=== PATIENT | female | born 1970 | race Caucasian/White ===

== ENCOUNTER 2024-08-18 09:17 | Observation (INO) ==
[2024-08-18] MEDS ORDERED: MORPHINE SULFATE INJ 2 MG INJ IVP PRN (10:01)
[2024-08-18] MEDS: NS 1,000 ML IV 1,000 ML IV SCH (10:15)
[2024-08-18] MEDS: FLAGYL IV PREMIX 500 MG BAG 500 MG/100 ML BAG IV SCH (10:15)
[2024-08-18] MEDS: CIPRO IV 400 MG PREMIX* 400 MG/200 ML IV.SOLN. IV SCH (10:15)
[2024-08-18 10:20] LABS: BASOPHILS % (AUTO) 0.5 % (0.2-1.0); EOSINOPHILS # (AUTO) 0.1 x10^3/uL (0.0-0.2); EOSINOPHILS % (AUTO) 2.2 % (0.9-2.9); ERYTHROCYTE SEDIMENTATION RATE 6 MM/HOUR (0-20); HEMATOCRIT 39.9 % (36.0-47.0); HEMOGLOBIN 13.9 g/dL (12.0-16.0); LYMPHOCYTES # (AUTO) 0.7 X10^3/uL (1.3-2.9); LYMPHOCYTES % (AUTO) 12.9 % (21.0-51.0); MEAN CORPUSCULAR HEMOGLOBIN 30.4 pg (27.0-34.0); MEAN CORPUSCULAR HGB CONC 34.7 g/dL (33.0-35.0); MEAN CORPUSCULAR VOLUME 87.5 fL (80.0-100.0); MEAN PLATELET VOLUME 8.6 fL (7.4-11.0); MONOCYTES # (AUTO) 0.4 x10^3/uL (0.3-0.8); MONOCYTES % (AUTO) 6.2 % (0.0-13.0); NEUTROPHILS # (AUTO) 4.5 x10^3/uL (2.2-4.8); NEUTROPHILS % (AUTO) 78.2 % (42.0-75.0); PLATELET COUNT 196 X10^3/uL (150.0-450.0); RED BLOOD COUNT 4.56 X10^6/uL (3.5-5.4); RED CELL DISTRIBUTION WIDTH 12.5 % (11.6-16.5); WHITE BLOOD COUNT 5.8 X10^3/uL (3.6-10.0)
[2024-08-18 10:33] LABS: ALANINE AMINOTRANSFERASE 23 Units/L (12-78); ALBUMIN 3.4 g/dL (3.4-5.0); ALKALINE PHOSPHATASE 82 Units/L (46-116); AMYLASE 49 Units/L (25-115); ASPARTATE AMINO TRANSFERASE 20 Units/L (15-37); BLOOD UREA NITROGEN 10 mg/dL (7-18); CALCIUM 8.6 mg/dL (8.5-10.1); CARBON DIOXIDE 29.9 mmol/L (21-32); CHLORIDE 104 mmol/L (98-107); CREATININE 0.64 mg/dL (0.55-1.02); GLUCOSE 94 mg/dL (65-99); LIPASE 57 Units/L (16-77); POTASSIUM 3.7 mmol/L (3.5-5.1); SODIUM 139 mmol/L (136-145); TOTAL PROTEIN 6.8 g/dL (6.4-8.2); eGFR NON BLACK RACES > 60 (>60)
[2024-08-18 10:37] VITALS: BMI 20.7
[2024-08-18 12:05] LABS: BILIRUBIN,URINE NEGATIVE (NEGATIVE); BLOOD/HEMOGLOBIN,URINE NEGATIVE (NEGATIVE); GLUCOSE, URINE NEGATIVE (NEGATIVE); KETONES,URINE 1+ (NEGATIVE); LEUKOCYTE ESTERASE ,URINE NEGATIVE (NEGATIVE); NITRITES,URINE NEGATIVE (NEGATIVE); PROTEIN,URINE NEGATIVE (NEGATIVE); UROBILINOGEN,URINE NORMAL (NORMAL)
[2024-08-18 12:06] LABS: APPEARANCE,URINE CLEAR (CLEAR); COLOR,URINE YELLOW (YELLOW)
--- NOTE | 2024-08-18 12:34 | DR.H&P ---
H&P History & Physical for Day of: H&P Date: 08/18/24 Chief Complaint Chief Complaint: left abdominal pain History of Present Illness History of Present Illness: PT IS 54 WF, DIRECT ADMIT FROM DR IQBAL OFFICE WITH CO LUQ AND LLQ PAIN SINCE WEDNESDAY. PT STATES SHE HAS HX OF DIVERTICULITIS AND HAS TAKEN CIPRO AND FLAGYL SINCE WEDNESDAY AM WITHOUT IMPROVMENT. PTS HAS COLONOSCOPY WAS 2 YEARS AGO. PT CO NAUSEA, NO VOMITING AND FATIGUE. PT ADMITTED FOR TREATMENT AND EVALUATION OF ACUTE ILLNESS. Past Surgical History Surgical History: Hysterectomy Family History Family Medical History: Hypertension Social History Does patient currently use any type of tobacco product: No Type of Tobacco Use: None Does any household member use tobacco: No Alcohol Use: None Drug Use: None Medications Home Medications: Home Medications Medication Instructions Recorded Confirmed Type estradiol 1 mg tablet (Estrace) 1 mg PO QDAY 08/18/24 08/18/24 History Allergies Allergies Allergy/AdvReac Type Severity Reaction Status Date / Time levofloxacin (From Levaquin) Allergy Verified 12/26/19 16:20 Labs 08/18/24 10:12 08/18/24 10:12 Labs: Laboratory WBC 5.8 X10^3/uL (3.6-10.0) 08/18/24 10:12 RBC 4.56 X10^6/uL (3.5-5.4) 08/18/24 10:12 Hgb 13.9 g/dL (12.0-16.0) 08/18/24 10:12 Hct 39.9 % (36.0-47.0) 08/18/24 10:12 MCV 87.5 fL (80.0-100.0) 08/18/24 10:12 MCH 30.4 pg (27.0-34.0) 08/18/24 10:12 MCHC 34.7 g/dL (33.0-35.0) 08/18/24 10:12 RDW 12.5 % (11.6-16.5) 08/18/24 10:12 Plt Count 196 X10^3/uL (150.0-450.0) 08/18/24 10:12 MPV 8.6 fL (7.4-11.0) 08/18/24 10:12 Neut % (Auto) 78.2 % (42.0-75.0) H 08/18/24 10:12 Lymph % (Auto) 12.9 % (21.0-51.0) L 08/18/24 10:12 Crowley % (Auto) 6.2 % (0.0-13.0) 08/18/24 10:12 Eos % (Auto) 2.2 % (0.9-2.9) 08/18/24 10:12 Baso % (Auto) 0.5 % (0.2-1.0) 08/18/24 10:12 Neut # (Auto) 4.5 x10^3/uL (2.2-4.8) 08/18/24 10:12 Lymph # (Auto) 0.7 X10^3/uL (1.3-2.9) L 08/18/24 10:12 Crowley # (Auto) 0.4 x10^3/uL (0.3-0.8) 08/18/24 10:12 Eos # (Auto) 0.1 x10^3/uL (0.0-0.2) 08/18/24 10:12 Baso # (Auto) 0.0 X10^3/uL (0.0-0.1) 08/18/24 10:12 Absolute Nucleated RBC 0.0 /100WBC 08/18/24 10:12 ESR 6 MM/HOUR (0-20) 08/18/24 10:12 Sodium 139 mmol/L (136-145) 08/18/24 10:12 Corrected Sodium TNP 08/18/24 10:12 Potassium 3.7 mmol/L (3.5-5.1) 08/18/24 10:12 Chloride 104 mmol/L (98-107) 08/18/24 10:12 Carbon Dioxide 29.9 mmol/L (21-32) 08/18/24 10:12 BUN 10 mg/dL (7-18) 08/18/24 10:12 Creatinine 0.64 mg/dL (0.55-1.02) 08/18/24 10:12 Est GFR (MDRD) Af Amer > 60 (>60) 08/18/24 10:12 Est GFR (MDRD) Non-Af > 60 (>60) 08/18/24 10:12 Glucose 94 mg/dL (65-99) 08/18/24 10:12 Calcium 8.6 mg/dL (8.5-10.1) 08/18/24 10:12 Corrected Calcium TNP 08/18/24 10:12 Total Bilirubin 0.60 mg/dL (0.2-1.0) 08/18/24 10:12 AST 20 Units/L (15-37) 08/18/24 10:12 ALT 23 Units/L (12-78) 08/18/24 10:12 Alkaline Phosphatase 82 Units/L (46-116) 08/18/24 10:12 C-Reactive Protein 20.20 mg/L (0-3.0) H 08/18/24 10:12 Total Protein 6.8 g/dL (6.4-8.2) 08/18/24 10:12 Albumin 3.4 g/dL (3.4-5.0) 08/18/24 10:12 Globulin 3.4 g/dL (2.5-4.5) 08/18/24 10:12 Albumin/Globulin Ratio 1.0 Ratio (1.1-2.1) L 08/18/24 10:12 Amylase 49 Units/L (25-115) 08/18/24 10:12 Lipase 57 Units/L (16-77) 08/18/24 10:12 Specimen Type Clean catch urine 08/18/24 11:45 Urine Color Yellow (YELLOW) 08/18/24 11:45 Urine Appearance Clear (CLEAR) 08/18/24 11:45 Urine pH 6.0 (5.0 - 8.0) 08/18/24 11:45 Ur Specific [place] 1.010 (1.000-1.030) 08/18/24 11:45 Urine Protein Negative (NEGATIVE) 08/18/24 11:45 Urine Glucose (UA) Negative (NEGATIVE) 08/18/24 11:45 Urine Ketones 1+ (NEGATIVE) 08/18/24 11:45 Urine Blood Negative (NEGATIVE) 08/18/24 11:45 Urine Nitrite Negative (NEGATIVE) 08/18/24 11:45 Urine Bilirubin Negative (NEGATIVE) 08/18/24 11:45 Urine Urobilinogen Normal (NORMAL) 08/18/24 11:45 Ur Leukocyte Esterase Negative (NEGATIVE) 08/18/24 11:45 Review of Systems Constitutional: Weakness Eyes: No Symptoms Reported ENT: No Symptoms Reported Respiratory: No Symptoms Reported Cardiovascular: No Symptoms Reported Gastrointestinal: Nausea and Abdominal Pain Genitourinary: No Symptoms Reported Musculoskeletal: No Symptoms Reported Skin: No Symptoms Reported Neurological: No Symptoms Reported Physical Exam Vital Signs: Vital Signs Temperature 97.7 F Pulse Rate [Left Radial] 76 Respiratory Rate 21 Blood Pressure [Left Arm] 132/73 O2 Sat by Pulse Oximetry 99 Oriented: Normal Eyes: Normal Ear: Normal Nose: Normal Throat: Normal Respiratory: Clear Throughout Cardiovascular: Normal : Normal Auscultation: Bowel Sounds: Increased Tenderness: LUQ and LLQ Skin: Normal Musculoskeletal: Normal Psychiatric: Normal Mood Description: Calm Speech Pattern: Clear and Appropriate Assessment/Plan (1) Diverticulitis: Status: Acute Plan: ADMIT, IV HYDRATION PAIN CONTROL, IV CIPRO AND FLAGYL CT ABD PELVIS WITH CONTRAST CONSULT DR ALCANTARA PRLeyda AMYLASE AND LIPASE, NPO
[2024-08-18] MEDS: READI-CAT 2 ONE (13:07)
[2024-08-18] MEDS: OMNIPAQUE 350 mg/mL 100 mL BTL 100 ML ONE (13:19)
--- NOTE | 2024-08-18 15:40 | CT ---
EXAM: ABDCMEN/PELVIS WITH CON HISTORY: Severe Abd pain, hx diverticulitis; COMPARISON: CT abdomen and pelvis 09/04/2022 TECHNIQUE: Multiple CT axial images of the abdomen and pelvis were obtained with IV contrast. Coronal and sagittal images were reconstructed. Dose reduction techniques included Automated Exposure Control (AEC) and adjustment of mA and kV. FINDINGS: The bowel is not dilated. There is no wall thickening in the bowel or edema around the bowel. There are diverticula in the colon. But there is no wall thickening or pericolonic edema to suggest acute diverticulitis. A normal appendix is not identified. But there is no inflammation around the cecum or at the expected location of the appendix. The lung bases are clear. Heart size is normal. The liver is normal in size and configuration. The gallbladder has no edema around it. The spleen is normal in size and shape. The adrenal glands are normal. The pancreas is normal. Renal enhancement is uniform and symmetric with no solid mass. There is no hydronephrosis or significant perirenal edema. The bladder is contracted. It has no wall thickening or perivesical edema. Degenerative disc disease is present at the lumbosacral junction. IMPRESSION: 1. No acute findings 2. Colonic diverticula THIS IS AN ELECTRONICALLY VERIFIED FINAL REPORT 08/18/2024 3:37 PM - Electronically signed by Larry Richardson MD
[2024-08-18] MEDS: ZOFRAN INJ 4 MG VIAL ONE (17:00)
[2024-08-18] MEDS: ESTRACE PO ONE (22:27)
[2024-08-19] MEDS: TYLENOL 325 MG TAB PO PRN (00:40)
[2024-08-19] MEDS: ZOFRAN INJ 4 MG VIAL IVP PRN (03:03)
[2024-08-19 04:26] VITALS: O2SAT 97
[2024-08-19 04:54] LABS: EOSINOPHILS # (AUTO) 0.2 x10^3/uL (0.0-0.2); EOSINOPHILS % (AUTO) 5.4 % (0.9-2.9); HEMATOCRIT 34.6 % (36.0-47.0); HEMOGLOBIN 12.3 g/dL (12.0-16.0); LYMPHOCYTES # (AUTO) 0.8 X10^3/uL (1.3-2.9); MEAN CORPUSCULAR HEMOGLOBIN 30.7 pg (27.0-34.0); MEAN CORPUSCULAR HGB CONC 35.4 g/dL (33.0-35.0); MEAN CORPUSCULAR VOLUME 86.7 fL (80.0-100.0); MEAN PLATELET VOLUME 9.3 fL (7.4-11.0); MONOCYTES # (AUTO) 0.4 x10^3/uL (0.3-0.8); MONOCYTES % (AUTO) 9.9 % (0.0-13.0); NEUTROPHILS # (AUTO) 2.6 x10^3/uL (2.2-4.8); NEUTROPHILS % (AUTO) 64.7 % (42.0-75.0); PLATELET COUNT 181 X10^3/uL (150.0-450.0); RED BLOOD COUNT 3.99 X10^6/uL (3.5-5.4); RED CELL DISTRIBUTION WIDTH 12.3 % (11.6-16.5)
[2024-08-19 05:01] LABS: ALANINE AMINOTRANSFERASE 16 Units/L (12-78); ALBUMIN 2.8 g/dL (3.4-5.0); ALKALINE PHOSPHATASE 66 Units/L (46-116); ASPARTATE AMINO TRANSFERASE 17 Units/L (15-37); BLOOD UREA NITROGEN 6 mg/dL (7-18); CALCIUM 8.2 mg/dL (8.5-10.1); CHLORIDE 106 mmol/L (98-107); COR CA(FOR HYPOALB) 9.2 mg/dL (8.5-10.1); CREATININE 0.65 mg/dL (0.55-1.02); GLUCOSE 99 mg/dL (65-99); MAGNESIUM 1.6 mg/dL (2.0-2.9); POTASSIUM 3.2 mmol/L (3.5-5.1); SODIUM 141 mmol/L (136-145); TOTAL PROTEIN 5.8 g/dL (6.4-8.2); eGFR NON BLACK RACES > 60 (>60)
[2024-08-19] MEDS ORDERED: CONSULT PHARMACY - POTASSIUM & MAGNESIUM XX SCH (07:00)
[2024-08-19 08:29] LABS: CRYPTOSPORIDIUM PARVUM ANTIGEN NEGATIVE (NEGATIVE); GIARDIA LAMBLIA ANTIGEN NEGATIVE (NEGATIVE)
[2024-08-19] MEDS: K-DUR TAB 20 MEQ PO SCH (08:47)
[2024-08-19] MEDS: MAG-OX TAB PO SCH (08:47)
[2024-08-19 08:55] VITALS: RESP 18
[2024-08-19 10:59] VITALS: BP 125/65; PULSE 77; TEMP 97.6
[2024-08-19] MEDS ORDERED: ESTRACE PO SCH (21:00)
--- NOTE | 2024-08-22 10:57 | W.DIS.FURT ---
Summary of Discharge Discharge Summary of Date Date of Exam: 08/19/24 Admission Date Date of Admission: 08/18/24 Admission Diagnosis Hospital Course: Ms. Farfan is a 54-year-old female with a past medical history of diverticulosis was directly admitted from Dr. Iqbal's office due to worsening left upper and left lower quadrant abdominal pain. She does have a history of diverticulitis. She was admitted for further management. She was started on IV fluids, IV antibiotics and pain control. She was kept NPO. Dr. Ling also consulted and recommended the above treatment. She was doing well. Her labs were monitored daily and electrolytes replaced as needed. She was able to tolerate p.o. intake the following day. She was stable to be discharged home on p.o. Cipro and Flagyl. She will follow-up with PCP as scheduled. Vital Signs: Vital Signs (72 hours) 08/18/24 10:20 08/18/24 11:24 08/18/24 12:00 Temperature 97.7 F 97.9 F Pulse Rate [Left Radial] 76 80 Respiratory Rate 21 19 Blood Pressure [Left Arm] 132/73 131/75 O2 Sat by Pulse Oximetry 99 100 Oxygen Delivery Method Room Air Room Air Room Air 08/18/24 16:00 08/18/24 19:00 08/18/24 20:00 Temperature 98.1 F 98.1 F Pulse Rate [Left Radial] 76 88 Respiratory Rate 21 20 Blood Pressure [Left Arm] 122/76 110/71 O2 Sat by Pulse Oximetry 98 97 Oxygen Delivery Method Room Air Room Air Room Air 08/19/24 00:00 08/19/24 00:40 08/19/24 01:39 Temperature 97.6 F Pulse Rate [Left Radial] 71 Respiratory Rate 20 20 20 Blood Pressure [Left Arm] 111/61 O2 Sat by Pulse Oximetry 98 Oxygen Delivery Method Room Air 08/19/24 04:00 08/19/24 07:00 08/19/24 08:54 Temperature 98.1 F Pulse Rate [Left Radial] 80 Respiratory Rate 20 18 Blood Pressure [Left Arm] 120/70 O2 Sat by Pulse Oximetry 97 Oxygen Delivery Method Room Air Room Air 08/19/24 10:11 Temperature Pulse Rate [Left Radial] Respiratory Rate 18 Blood Pressure [Left Arm] O2 Sat by Pulse Oximetry Oxygen Delivery Method Labs: Laboratory Last Values WBC 4.0 X10^3/uL (3.6-10.0) 08/19/24 04:24 RBC 3.99 X10^6/uL (3.5-5.4) 08/19/24 04:24 Hgb 12.3 g/dL (12.0-16.0) 08/19/24 04:24 Hct 34.6 % (36.0-47.0) L 08/19/24 04:24 MCV 86.7 fL (80.0-100.0) 08/19/24 04:24 MCH 30.7 pg (27.0-34.0) 08/19/24 04:24 MCHC 35.4 g/dL (33.0-35.0) H 08/19/24 04:24 RDW 12.3 % (11.6-16.5) 08/19/24 04:24 Plt Count 181 X10^3/uL (150.0-450.0) 08/19/24 04:24 MPV 9.3 fL (7.4-11.0) 08/19/24 04:24 Neut % (Auto) 64.7 % (42.0-75.0) 08/19/24 04:24 Lymph % (Auto) 19.0 % (21.0-51.0) L 08/19/24 04:24 Bond % (Auto) 9.9 % (0.0-13.0) 08/19/24 04:24 Eos % (Auto) 5.4 % (0.9-2.9) H 08/19/24 04:24 Baso % (Auto) 1.0 % (0.2-1.0) 08/19/24 04:24 Neut # (Auto) 2.6 x10^3/uL (2.2-4.8) 08/19/24 04:24 Lymph # (Auto) 0.8 X10^3/uL (1.3-2.9) L 08/19/24 04:24 Bond # (Auto) 0.4 x10^3/uL (0.3-0.8) 08/19/24 04:24 Eos # (Auto) 0.2 x10^3/uL (0.0-0.2) 08/19/24 04:24 Baso # (Auto) 0.0 X10^3/uL (0.0-0.1) 08/19/24 04:24 Absolute Nucleated RBC 0.1 /100WBC 08/19/24 04:24 ESR 6 MM/HOUR (0-20) 08/18/24 10:12 Sodium 141 mmol/L (136-145) 08/19/24 04:24 Corrected Sodium TNP 08/19/24 04:24 Potassium 3.2 mmol/L (3.5-5.1) L 08/19/24 04:24 Chloride 106 mmol/L (98-107) 08/19/24 04:24 Carbon Dioxide 28.0 mmol/L (21-32) 08/19/24 04:24 BUN 6 mg/dL (7-18) L 08/19/24 04:24 Creatinine 0.65 mg/dL (0.55-1.02) 08/19/24 04:24 Est GFR (MDRD) Af Amer > 60 (>60) 08/19/24 04:24 Est GFR (MDRD) Non-Af > 60 (>60) 08/19/24 04:24 Glucose 99 mg/dL (65-99) 08/19/24 04:24 Calcium 8.2 mg/dL (8.5-10.1) L 08/19/24 04:24 Corrected Calcium 9.2 mg/dL (8.5-10.1) 08/19/24 04:24 Magnesium 1.6 mg/dL (2.0-2.9) L 08/19/24 04:24 Total Bilirubin 0.50 mg/dL (0.2-1.0) 08/19/24 04:24 AST 17 Units/L (15-37) 08/19/24 04:24 ALT 16 Units/L (12-78) 08/19/24 04:24 Alkaline Phosphatase 66 Units/L (46-116) 08/19/24 04:24 C-Reactive Protein 20.20 mg/L (0-3.0) H 08/18/24 10:12 Total Protein 5.8 g/dL (6.4-8.2) L 08/19/24 04:24 Albumin 2.8 g/dL (3.4-5.0) L 08/19/24 04:24 Globulin 3.0 g/dL (2.5-4.5) 08/19/24 04:24 Albumin/Globulin Ratio 0.9 Ratio (1.1-2.1) L 08/19/24 04:24 Amylase 49 Units/L (25-115) 08/18/24 10:12 Lipase 57 Units/L (16-77) 08/18/24 10:12 Specimen Type Clean catch urine 08/18/24 11:45 Urine Color Yellow (YELLOW) 08/18/24 11:45 Urine Appearance Clear (CLEAR) 08/18/24 11:45 Urine pH 6.0 (5.0 - 8.0) 08/18/24 11:45 Ur Specific [place] 1.010 (1.000-1.030) 08/18/24 11:45 Urine Protein Negative (NEGATIVE) 08/18/24 11:45 Urine Glucose (UA) Negative (NEGATIVE) 08/18/24 11:45 Urine Ketones 1+ (NEGATIVE) 08/18/24 11:45 Urine Blood Negative (NEGATIVE) 08/18/24 11:45 Urine Nitrite Negative (NEGATIVE) 08/18/24 11:45 Urine Bilirubin Negative (NEGATIVE) 08/18/24 11:45 Urine Urobilinogen Normal (NORMAL) 08/18/24 11:45 Ur Leukocyte Esterase Negative (NEGATIVE) 08/18/24 11:45 Stl Occult Blood (IFOB) Negative (NEGATIVE) 08/19/24 06:35 Stool for White Cells Positive (NEGATIVE) A 08/19/24 06:35 Stl C. diff Tox B Gene Negative (NEGATIVE) 08/19/24 06:35 Stl C. diff [id number] Presumptive negative (NEGATIVE) 08/19/24 06:35 Stool H. pylori Ag Negative (NEGATIVE) 08/19/24 06:35 Cryptosporid parvum Ag Negative (NEGATIVE) 08/19/24 06:35 Giardia lamblia Ag Negative (NEGATIVE) 08/19/24 06:35 Reason For Visit: ACUTE DIVERTICULITIS/FAILED OP TX Discharge Diagnosis All Active Problems (Updated 09/04/22 @ 18:02 by Prosper Parekh) Diverticulitis (Acute) Laceration of left leg (Acute) Laceration (Acute) Plan of Treatment: Continue with present treatment and follow up plan. Pt is to keep follow up appointment as instructed and take medications as ordered. Discharge Medications Discharge Medications: levofloxacin (From Levaquin) Allergy (Verified 08/18/24 21:29) CONTINUE taking the following medications estradiol 1 mg tablet (Estrace) 1 mg PO QDAY 08/18/24 [History] New Prescriptions ciprofloxacin HCl 500 mg tablet 500 mg PO Q12H 7 days #14 tabs 08/19/24 [Rx] metronidazole 500 mg tablet 500 mg PO Q8H 7 days #21 tabs 08/19/24 [Rx] ondansetron 4 mg disintegrating tablet 4 mg PO Q8H PRN #20 tabs 08/19/24 [Rx] potassium chloride 20 mEq tablet,extended release(part/cryst) (Klor-Con M) 20 meq PO QDAY 5 days #5 tabs 08/19/24 [Rx] Discharge Disposition Discharge Disposition: home Discharge Condition: Stable Discharge Plan Discharge Plan Hospital Course: Ms. Farfan is a 54-year-old female with a past medical history of diverticulosis was directly admitted from Dr. Iqbal's office due to worsening left upper and left lower quadrant abdominal pain. She does have a history of diverticulitis. She was admitted for further management. She was started on IV fluids, IV antibiotics and pain control. She was kept NPO. Dr. Ling also consulted and recommended the above treatment. She was doing well. Her labs were monitored daily and electrolytes replaced as needed. She was able to tolerate p.o. intake the following day. She was stable to be discharged home on p.o. Cipro and Flagyl. She will follow-up with PCP as scheduled. Patient Disposition: 01 HOME, SELF-CARE Condition: Stable Health Concerns: Post Hospitalization: new medications and changes needed to prevent readmission or further decline. Pt educated and given instructions on all concerns. Plan of Treatment: Continue with present treatment and follow up plan. Pt is to keep follow up appointment as instructed and take medications as ordered. Prescription drug monitoring program results: PDMP reviewed and no concerns identified Prescriptions: New potassium chloride [Klor-Con M20] 20 mEq Tablet,Er Particles/Crystals 20 meq PO QDAY 5 Days Qty: 5 0RF ciprofloxacin HCl 500 mg tablet 500 mg PO Q12H 7 Days Qty: 14 0RF metronidazole 500 mg tablet 500 mg PO Q8H 7 Days Qty: 21 0RF ondansetron 4 mg tablet,disintegrating 4 mg PO Q8H PRNQty: 20 0RF Continued estradiol [Estrace] 1 mg tablet 1 mg PO QDAY Orders to Discharge Patient Discharge Orders: Discharge (Routine); Ordered 08/19/24 Ordered By: Ifrah Benavides Follow ups/Referrals Follow ups/Referrals: SANJIV IQBAL [Primary Care Provider, MEDICAL] - 1 WEEK Instructions Instructions: Ondansetron tablets, Diverticulitis, Ciprofloxacin tablets, Metronidazole tablets or capsules, Otoe Diet Activity Restrictions/Additional Instructions: O[place]e diet Drink plenty of fluids Return to the ER if symptoms return or worsen Stand Alone Forms: Excuse From Work or School, Find Help Web Site, Post Hospital Follow Up Care Print Language: YORUBA
== END 2024-08-19 11:30 | disposition home or self-care (01) ==
LOC: MED/SURG
PROVIDERS: ADMIT Internal Medicine; ATTEND Internal Medicine